=== PATIENT | male | born 1965 | race Caucasian/White ===

== ENCOUNTER 2016-12-07 10:59 | Emergency (ER) | payer SELFPAY ==
--- NOTE | 2016-12-07 13:00 | RAD ---
PA AND LATERAL VIEWS OF CHEST: Date: 12/07/16 HISTORY: Cough. FINDINGS: Comparison made with exam of 01/17/13. The heart size is normal. The aorta is tortuous. The lungs are well expanded without focal areas of consolidation, pneumothorax, or pleural effusions. There are degenerative changes in the spine. IMPRESSION: No radiographic evidence of acute cardiopulmonary process. POS: [facility]
[2016-12-07] MEDS ORDERED: methylPREDNISolone Sod Succ/PF 125 MG/2 ML VIAL ONE (13:20)
[2016-12-07] MEDS ORDERED: Water For Inject, Bacteriostat 30 ML ONE (13:21)
== END 2016-12-07 13:51 | disposition home or self-care (01) ==
LOC: ERS 10:59
DX: J20.9 Acute bronchitis, unspecified (principal); F17.210 Nicotine dependence, cigarettes, uncomplicated
CPT/HCPCS: 71020; 96372; J2930

== ENCOUNTER 2017-02-10 09:25 | Emergency (ER) | payer SELFPAY | END 2017-02-10 12:30 | disposition left against medical advice (07) | LOC: ERS 09:25 | DX: Z53.21 Procedure and treatment not carried out due to patient leaving prior to being seen by health care provider (principal) ==

== ENCOUNTER 2018-06-02 09:26 | Outpatient (CLI) | payer OTHER ==
--- NOTE | 2018-06-02 10:22 | ULT ---
Gallbladder ultrasound: Multiple grayscale images of right upper quadrant obtained according to protocol. INDICATION: Pain FINDINGS: Liver: No focal hepatic lesion Gallbladder: Shadowing cholelithiasis Gallbladder wall: Mild wall prominence. Liao's Sign: Negative Common bile duct is normal. Ascites: None IMPRESSION: Cholelithiasis. Mild gallbladder wall prominence. Correlate clinically to exclude evidence of cholecy stitis.
== END 2018-06-02 09:27 | disposition home or self-care (01) ==
LOC: ULT 09:26
PROVIDERS: ATTEND Physician Assistant
DX: R10.811 Right upper quadrant abdominal tenderness (principal); K80.20 Calculus of gallbladder without cholecystitis without obstruction
CPT/HCPCS: 76705

== ENCOUNTER 2024-12-07 12:58 | Outpatient (CLI) | payer OTHER | END 2024-12-07 12:59 | disposition home or self-care (01) | LOC: BICCT 12:58 | PROVIDERS: ATTEND Family Medicine | DX: Z12.2 Encounter for screening for malignant neoplasm of respiratory organs (principal); F17.210 Nicotine dependence, cigarettes, uncomplicated; R06.00 Dyspnea, unspecified; I25.10 Atherosclerotic heart disease of native coronary artery without angina pectoris; R91.8 Other nonspecific abnormal finding of lung field | CPT/HCPCS: 71046; 71271 ==